=== PATIENT | male | born 1990 | race Caucasian/White ===

== ENCOUNTER 2019-02-24 23:13 | Emergency (ER) | payer BC ==
[~2019-02-24] VITALS: Ht 185.4 cm; Wt 101.6 kg
[2019-02-24 23:15] VITALS: BP 140/84
--- NOTE | 2019-02-24 23:18 | NUR ---
TO LOBBY A/W BED AMBULATORY
[2019-02-24 23:34] LABS: APPEARANCE,URINE CLOUDY (CLEAR); BILIRUBIN,URINE NEGATIVE (NEGATIVE); BLOOD, URINE 1+ (NEGATIVE); COLOR,URINE YELLOW (YELLOW); LEUKOCYTE ESTERASE ,URINE 1+ (NEGATIVE); NITRITE, URINE NEGATIVE (NEGATIVE); UGLUCOSE NEGATIVE (NEGATIVE)
[2019-02-24 23:43] LABS: WBC,URINE TOO MANY TO COUNT /HPF (0-5)
--- NOTE | 2019-02-24 23:48 | NUR ---
PT AMBULATED TO BED 6
[2019-02-25] MEDS ORDERED: AZITHROMYCIN 250 MG TAB PO ONE (00:20)
[2019-02-25] MEDS ORDERED: cefTRIAXone 250 MG in LIDOCAINE MPF 1% - 5 mL VIAL 0.9 ML IM ONE (00:20)
--- NOTE | 2019-02-25 00:34 | NUR ---
PT DENIES MED HX, RX OR OTC
--- NOTE | 2019-02-25 00:34 | NUR ---
28/M PRESENTS WITH FAMILY/FRIEND, C/O DYSURIA, X2 DAYS. PT REPORTS PENILE DISCHARGE. PT AWAKE AND ALERT, SKIN NORMAL WARM AND DRY, RR EVEN AND UNLABORED.
[2019-02-25 00:58] VITALS: BP 142/83
--- NOTE | 2019-02-25 00:58 | NUR ---
Patient discharged with v/s stable. Written and verbal after care instructions given and explained. Patient alert, oriented and verbalized understanding of instructions. Ambulatory with steady gait. All questions addressed prior to discharge. ID band removed. Patient advised to follow up with PMD. Rx of PENICILLIN VK 500MG AND DOXYCYLINE 100MG given. Patient educated on indication of medication including possible reaction and side effects. Advised to drink plenty of fluids. Opportunity to ask questions provided and answered.
== END 2019-02-25 00:58 | disposition home or self-care (01) ==
LOC: MED 23:13
DX: R30.0 Dysuria (principal); R30.9 Painful micturition, unspecified; R36.9 Urethral discharge, unspecified
CPT/HCPCS: 81001; 86592; 87086; 96372; 99283; J0696; J2001